=== PATIENT | female | born 1995 ===

== ENCOUNTER 2017-01-06 14:35 | Observation (INO) | payer MEDICAID, OTHER ==
[2017-01-06 15:16] VITALS: TEMP 98.5; O2SAT 98; BMI 21.7
[2017-01-06 16:10] LABS: PH,URINE 5.5 (4.7-8.0); URINE BILIRUBIN SMALL (NEGATIVE); URINE BLOOD LARGE (NEGATIVE); URINE GLUCOSE (UA) 250 mg/dL (NEGATIVE); URINE KETONE 15 mg/dL (NEGATIVE); URINE LEUKOCYTE ESTERASE MODERATE Leu/uL (NEGATIVE); URINE PROTEIN >=300 mg/dL (<30 mg/dL); URINE UROBILINOGEN >=8.0 E.U./dL (<1 E.U./dL)
[2017-01-06 16:11] LABS: URINE COLOR ORANGE (YELLOW)
[2017-01-06 16:12] LABS: URINE APPEARANCE TURBID (CLEAR)
[2017-01-06 16:22] LABS: URINE BACTERIA FEW (NEG); URINE RBC 25 - 30 /hpf (0-2); URINE WBC TNTC /hpf (0-6)
[2017-01-06 16:32] VITALS: RESP 18
[2017-01-06 16:43] LABS: ADD MANUAL DIFF? NO
[2017-01-06 16:51] LABS: BASO # 0.03 K/mm3 (0.0-2.0); BASO % 0.3 % (0.0-3.0); EOS % 0.2 % (1.5-5.0); GRAN # 7.81 (1.4-6.5); GRAN % 68.7 % (50.0-68.0); HEMATOCRIT 35.1 % (36.0-48.0); LYMPH # 2.3 (1.2-3.4); LYMPH % 20.4 % (22.0-35.0); MEAN CELL VOLUME 92.6 fL (80.0-105.0); MEAN CORPUSCULAR HEMOGLOBIN 31.1 pg (25.0-35.0); MEAN CORPUSCULAR HGB CONC 33.6 g/dl (31.0-37.0); MEAN PLATELET VOLUME 9.3 fl (7.0-11.0); MONO # 1.2 (0.1-0.6); MONO % 10.4 % (1.0-6.0); PLATELET COUNT 265 10^3/uL (120.0-450.0); RED CELL DISTRIBUTION WIDTH 12.3 % (11.5-14.5); WHITE BLOOD COUNT 11.4 10^3/ul (4.5-11.0)
--- NOTE | 2017-01-06 17:05 | ED PDOC ---
Arrival/HPI - General Historian: Patient - General Chief Complaint: Back Pain Time Seen by Provider: 01/06/17 15:52 - History of Present Illness Narrative History of Present Illness (Text): 01/06/17 17:02 21-year-old female presents today with left flank pain 1 day. Patient states she's had dysuria or urinary frequency and urgency 1 day. She is complaining of suprapubic pain. She is complaining of bilateral flank pain worse in the left flank. Patient describes the pain as a 6 out of 10 achy stabbing pain to the left flank with lower abdominal cramping. Patient states she is a history of UTI in the past that has spread to her kidneys in the past. She denies history of kidney stone. Denies fevers or chills. Nausea but no vomiting. No diarrhea or constipation. No other complaints (Azoia,Chanel T) Past Medical History - Provider Review Nursing Documentation Reviewed: Yes - Travel History Have you recently traveled outside [place] w/in the past 3 mons?: No - Infectious Disease Hx of Infectious Diseases: None - Tetanus Immunization Tetanus Immunization: Unknown - Reproductive Menopause: No - Past Medical History Past Medical History: No Previous - Genitourinary/Gynecological Hx Urinary Tract Infection: Yes - Psychiatric Hx Psychophysiologic Disorder: No Hx Substance Use: No - Past Surgical History Past Surgical History: No Previous - Surgical History Hx Orthopedic Surgery: Yes (right wrist) - Anesthesia Hx Anesthesia: No - Suicidal Assessment Feels Threatened In Home Enviroment: No Family/Social History - Physician Review Nursing Documentation Reviewed: Yes Family/Social History: Unknown Family HX Smoking Status: Never Smoked Hx Alcohol Use: Yes Hx Substance Use: No Hx Substance Use Treatment: No Allergies/Home Meds Allergies/Adverse Reactions: Allergies No Known Allergies Allergy (Verified 08/11/16 11:28) Review of Systems - Review of Systems Constitutional: absent: Fatigue, Fevers Respiratory: absent: SOB, Cough Cardiovascular: absent: Chest Pain, Palpitations Gastrointestinal: Abdominal Pain, Nausea. absent: Constipation, Diarrhea, Vomiting Genitourinary Female: Dysuria, Frequency, Hematuria. absent: Vaginal Bleeding, Vaginal Discharge Musculoskeletal: Back Pain. absent: Arthralgias, Neck Pain Skin: absent: Rash, Pruritis Neurological: absent: Headache, Dizziness Psychiatric: absent: Anxiety, Depression Physical Exam Vital Signs Reviewed: Yes Temperature: Afebrile Blood Pressure: Normal Pulse: Regular Respiratory Rate: Normal Appearance: Positive for: Well-Appearing, Non-Toxic, Comfortable Pain Distress: None Mental Status: Positive for: Alert and Oriented X 3 - Systems Exam Head: Present: Atraumatic Mouth: Present: Moist Mucous Membranes Neck: Present: Normal Range of Motion Respiratory/Chest: Present: Clear to Auscultation, Good Air Exchange. No: Respiratory Distress, Accessory Muscle Use Cardiovascular: Present: Regular Rate and Rhythm Abdomen: Present: Tenderness (minimal suprapubic tenderness). No: Distention, Rebound, Guarding Back: Present: Normal Inspection, CVA Tenderness (+ left cva tenderness), Paraspinal Tenderness (+ left sided paraspinal tenderness. ). No: Midline Tenderness Upper Extremity: Present: Normal ROM Lower Extremity: Present: Normal ROM Neurological: Present: GCS=15, Speech Normal Skin: Present: Warm, Dry, Normal Color. No: Rashes Psychiatric: Present: Alert, Oriented x 3 Vital Signs Temp Pulse Resp BP Pulse Ox 01/06/17 17:53 79 18 103/68 98 01/06/17 16:32 89 18 101/65 98 01/06/17 15:15 98.5 F 93 H 16 99/63 L 98 Medical Decision Making ED Course and Treatment: I was available for consultation during PA evaluation. The chart reviewed by me , and I agree with disposition. The documented history was done by the physician coconut candy maker. The documented physical exam was done by the physician coconut candy maker. The documented procedures were done by the physician coconut candy maker. (Lele Dahl) 01/06/17 17:06 Patient is nontoxic well appearing with stable vital signs presenting with left flank and suprapubic tenderness CBC 11.4 CMP wnl Urinalysis positive glucose positive blood, RBCS, WBC, CAT scan ; wnl Patient reassessment: non toxic well appearing; no distress. stable vitals. Discussed all results with patient in depth advised f/u with pmd and urologist; advised immediate return if symptoms worsen,persist or if new symptoms develop. Impression: back pain, UTI Motrin every 6 hours as needed for pain kelfex; 1 capsule 4 times daily x 10 days Follow up with primary care physician within the next 2 days Follow up with the urologist within the next 2 days. Return immediately if symptoms worsen persist or if new symptoms develop: High fevers, increasing pain, vomiting, diarrhea or any other concerning symptoms develop (Chanel Centeno) - Medication Orders Current Medication Orders: Discontinued Medications Cephalexin Monohydrate (Keflex) 500 mg PO STAT STA PRN Reason: Protocol Stop: 01/06/17 18:25 Last Admin: 01/06/17 19:10 Dose: 500 mg Ketorolac Tromethamine (Toradol) 30 mg IVP STAT STA Stop: 01/06/17 18:25 Last Admin: 01/06/17 19:10 Dose: 30 mg ED OBSERVATION Discharge: Yes Date of observation admission: 01/06/17 Time of observation admission: 15:55 - Observation admission statement Patient is being placed in observation because:: back pain, abdominal pain, urinary symptoms (Chanel Centeno) - Goals of Observation Goals of observation are:: improvement in symptoms (Chanel Centeno) - Progress Note Progress Note: 01/06/17 17:30 pt non toxic well appearing; no distress. resting comfortably. 01/06/17 19:10 discussed all results with patient; in depth; advised f/u with urologist. advised return if symptoms worsen,persist or if new symptoms develop. (Chanel Centeno) Disposition/Present on Arrival - Present on Arrival Any Indicators Present on Arrival: No History of DVT/PE: No History of Uncontrolled Diabetes: No Urinary Catheter: No History of Decub. Ulcer: No History Surgical Site Infection Following: None - Disposition Have Diagnosis and Disposition been Completed?: Yes Disposition Time: 19:09 Patient Plan: Discharge - Disposition Diagnosis: UTI (urinary tract infection), Back pain Disposition: HOME/ ROUTINE Patient Problems: Current Active Problems Problem Status Onset Back pain Acute UTI (urinary tract infection) Acute Condition: GOOD
[2017-01-06 17:19] LABS: ALB/GLOB RATIO 1.1 (1.1-1.8); ALKALINE PHOSPHATASE 62 U/L (38-133); ALT/SGPT 28 U/L (7-56); AST/SGOT 31 U/L (15-39); BILIRUBIN,TOTAL 0.7 mg/dL (0.2-1.3); BLOOD UREA NITROGEN 12 mg/dL (7-21); CALCIUM 9.5 mg/dL (8.4-10.5); CARBON DIOXIDE 29 mmol/L (21-33); CHLORIDE 100 mmol/L (98-107); GFR AFRICAN-AMERICAN > 60; GLUCOSE,RANDOM 114 mg/dL (70-110); POTASSIUM 4.2 mmol/L (3.6-5.0); SODIUM 138 mmol/L (132-148); TOTAL PROTEIN 7.7 g/dL (5.8-8.3)
--- NOTE | 2017-01-06 17:41 | CT ---
PROCEDURE: CT Abdomen and Pelvis without intravenous contrast HISTORY: left flank pain COMPARISON: None. TECHNIQUE: Technique. Contrast Dose: Radiation dose: Total exam DLP = 225 mGy-cm. This CT exam was performed using one or more of the following dose reduction techniques: Automated exposure control, adjustment of the mA and/or kV according to patient size, and/or use of iterative reconstruction technique. FINDINGS: LOWER THORAX: Unremarkable. LIVER: Unremarkable. No gross lesion or ductal dilatation. GALLBLADDER AND BILE DUCTS: Unremarkable. PANCREAS: Unremarkable. No gross lesion or ductal dilatation. SPLEEN: Unremarkable. ADRENALS: Unremarkable. No mass. KIDNEYS AND URETERS: Unremarkable. No hydronephrosis. No solid mass. VASCULATURE: Unremarkable. No aortic aneurysm. BOWEL: Unremarkable. No obstruction. No gross mural thickening. APPENDIX: Unremarkable. Normal appendix. PERITONEUM: Unremarkable. No free fluid. No free air. LYMPH NODES: Unremarkable. No enlarged lymph nodes. BLADDER: Unremarkable. REPRODUCTIVE: Unremarkable. BONES: No acute fracture. OTHER FINDINGS: None. IMPRESSION: Unremarkable non contrast enhanced CT of the abdomen and pelvis.
[2017-01-06 17:54] VITALS: BP 103/68; PULSE 79
== END 2017-01-06 19:08 | disposition home or self-care (01) ==
LOC: ED 14:35 → EROBSV 15:53
PROVIDERS: ADMIT Emergency Medicine; ATTEND Emergency Medicine
DX: N39.0 Urinary tract infection, site not specified (principal); M54.9 Dorsalgia, unspecified
CPT/HCPCS: 74176; 80053; 81001; 84703; 85025; 87086; 96374; 99283; G0378; J1885